=== PATIENT | male | born 1995 | race Caucasian/White ===

== ENCOUNTER 2016-07-05 21:37 | Emergency (ER) | payer BC | END 2016-07-06 00:25 | disposition left against medical advice (07) | LOC: ER1 21:37 | DX: Z53.21 Procedure and treatment not carried out due to patient leaving prior to being seen by health care provider (principal) ==

== ENCOUNTER 2021-02-07 07:24 | Emergency (ER) | payer OTHER ==
[2021-02-07 08:02] LABS: HEMOGLOBIN 15.2 gm/dl (14.0-17.5); RED BLOOD COUNT 4.98 M/UL (4.20-5.50); WHITE BLOOD COUNT 9.9 K/UL (4.5-11.0)
[2021-02-07 08:33] LABS: BUN/CREATININE RATIO 10 (0-10)
[2021-02-07] MEDS ORDERED: HYDROCODON-ACE1 EAC4 PO (09:01)
[2021-02-07] MEDS ORDERED: NAPROSYN500 MG PO (09:01)
[2021-02-07] MEDS ORDERED: FLOMAX 0.4 MG0.4 MG PO (09:01)
[2021-02-07] MEDS ORDERED: ZOFRAN ODT 4 MG4 MG SL (09:01)
== END 2021-02-07 09:24 | disposition home or self-care (01) ==
LOC: ER1 07:24
PROVIDERS: Student in an Organized Health Care Education/Training Program
DX: N13.2 Hydronephrosis with renal and ureteral calculous obstruction (principal)
CPT/HCPCS: 80053; 81001; 85025; 96374; 96375; 99284; J1885; J2270; J2405